=== PATIENT | female | born 1970 | race Caucasian/White ===

== ENCOUNTER 2016-11-06 12:49 | Inpatient (IN) | payer BC, OTHER ==
[2016-11-06 13:16] VITALS: RESP 16
[2016-11-06] MEDS ORDERED: SODIUM CHLORIDE 0.9% 1,000 ML IV STA (13:45)
[2016-11-06] MEDS ORDERED: KETOROLAC 30 MG/ML 1 ML VIAL IVP STA (13:45)
--- NOTE | 2016-11-06 14:06 | ED ---
General Adult HPI - General Chief complaint: Urogenital Stated complaint: Right Side Tenderness/pain in back Time Seen by Provider: 11/06/16 13:39 Source: patient, RN notes reviewed Mode of arrival: ambulatory Limitations: no limitations - History of Present Illness Initial comments: Patient for 6-year-old female who presents emergency room today with chief complaint of right-sided flank pain. Patient does admit to some symptoms of dysuria last week. States a slight "burning" sensation at the end of voiding. States still having similar symptoms. Patient states that she began having increased right-sided flank pain that started early this morning. States pain seems to be getting worse. Describes it as "sharp". Patient does admit that it radiates around to the front. Patient denies any other complaints or symptoms. Denies any history of kidney stones or similar symptoms in the past. Patient states she was concerned as she only has one kidney on the right side due to chronic infections. Patient denies any recent fever, chills, shortness of breath, chest pain, nausea or vomiting, numbness or tingling, dysuria or hematuria, constipation or diarrhea, headaches or visual changes, or any other complaints. - Related Data Home Medications Medication Instructions Recorded Confirmed No Known Home Medications [No 11/06/16 11/06/16 Known Home Medications] Allergies Allergy/AdvReac Type Severity Reaction Status Date / Time UNKNOWN ANTIBIOTIC Allergy Unknown Uncoded 11/06/16 14:26 Review of Systems ROS Statement: Those systems with pertinent positive or pertinent negative responses have been documented in the HPI. ROS Other: All systems not noted in ROS Statement are negative. Past Medical History Additional Past Medical History / Comment(s): has only 1 kidney History of Any Multi-Drug Resistant Organisms: C-DIFF Date of last positivie culture/infection: 2012 MDRO Source:: stool Past Surgical History: Cholecystectomy Additional Past Surgical History / Comment(s): nephrectomy endometrial ablation Past Psychological History: Depression Smoking Status: Current every day smoker Past Alcohol Use History: Occasional Past Drug Use History: None Reported General Exam - General Exam Comments Initial Comments: General: The patient is awake and alert, in no distress, and does not appear acutely ill. Eye: Pupils are equal, round and reactive to light, extra-ocular movements are intact. No nystagmus. There is normal conjunctiva bilaterally. No signs of icterus. Ears, nose, mouth and throat: There are moist mucous membranes and no oral lesions. Neck: The neck is supple, there is no tenderness or JVD. Cardiovascular: There is a regular rate and rhythm. No murmur, rub or gallop is appreciated. Respiratory: Lungs are clear to auscultation, respirations are non-labored, breath sounds are equal. No wheezes, stridor, rales, or rhonchi. Gastrointestinal: Soft, non-distended, non-tender abdomen without masses or organomegaly noted. There is no rebound or guarding present. No CVA tenderness. Bowel sounds are unremarkable. Musculoskeletal: Normal ROM, no tenderness. Strength 5/5. Sensation intact. Pulses equal bilaterally 2+. Neurological: A&O x 3. CN II-XII intact, There are no obvious motor or sensory deficits. Coordination appears grossly intact. Speech is normal. Skin: Skin is warm and dry and no rashes or lesions are noted. Psychiatric: Cooperative, appropriate mood & affect, normal judgment. Limitations: no limitations Course Vital Signs 11/06/16 11/06/16 13:12 15:49 Temperature 97.7 F 98.0 F Pulse Rate 85 63 Respiratory 16 16 Rate Blood Pressure 121/76 130/77 O2 Sat by Pulse 99 90 L Oximetry Medical Decision Making - Medical Decision Making Patient's CAT scan reviewed and does show 3.3 mm stone on the right side. Nephrectomy on the left. Patient's urinalysis does show evidence for infection. Patient started on antibiotics of Rocephin here in the emergency room. Patient will be admitted for further iv antibiotics and evaluation. Consult to urology. - Lab Data Result diagrams: 11/06/16 14:25 11/06/16 14:25 Lab Results 11/06/16 11/06/16 11/06/16 Range/Units 14:25 14:25 14:25 WBC 11.9 H (3.8-10.6) k/uL RBC 4.37 (3.80-5.40) m/uL Hgb 14.2 (11.4-16.0) gm/dL Hct 44.4 (34.0-46.0) % MCV 101.6 H (80.0-100.0) fL MCH 32.5 (25.0-35.0) pg MCHC 31.9 (31.0-37.0) g/dL RDW 12.6 (11.5-15.5) % Plt Count 211 (150-450) k/uL Neutrophils % 72 % Lymphocytes % 21 % Monocytes % 4 % Eosinophils % 2 % Basophils % 0 % Neutrophils # 8.6 H (1.3-7.7) k/uL Lymphocytes # 2.4 (1.0-4.8) k/uL Monocytes # 0.4 (0-1.0) k/uL Eosinophils # 0.2 (0-0.7) k/uL Basophils # 0.0 (0-0.2) k/uL Sodium 139 (137-145) mmol/L Potassium 4.5 (3.5-5.1) mmol/L Chloride 105 (98-107) mmol/L Carbon Dioxide 27 (22-30) mmol/L Anion Gap 7 mmol/L BUN 8 (7-17) mg/dL Creatinine 0.79 (0.52-1.04) mg/dL Est GFR (MDRD) Af Amer >60 (>60 ml/min/1.73 sqM) Est GFR (MDRD) Non-Af >60 (>60 ml/min/1.73 sqM) Glucose 88 (74-99) mg/dL Calcium 9.6 (8.4-10.2) mg/dL Total Bilirubin 0.8 (0.2-1.3) mg/dL AST 14 (14-36) U/L ALT 21 (9-52) U/L Alkaline Phosphatase 47 (38-126) U/L Total Protein 7.2 (6.3-8.2) g/dL Albumin 4.2 (3.5-5.0) g/dL Amylase 64 (30-110) U/L Lipase 63 (23-300) U/L Urine Color Urine Appearance (Clear) Urine pH (5.0-8.0) Ur Specific Meacham (1.001-1.035) Urine Protein (Negative) Urine Glucose (UA) (Negative) Urine Ketones (Negative) Urine Blood (Negative) Urine Nitrate (Negative) Urine Bilirubin (Negative) Urine Urobilinogen (<2.0) mg/dL Ur Leukocyte Esterase (Negative) Urine RBC (0-5) /hpf Urine WBC (0-5) /hpf Urine WBC Clumps (None) /hpf Ur Squamous Epith Cells (0-4) /hpf Urine Bacteria (None) /hpf Urine Mucus (None) /hpf Urine Yeast (Budding) (None) /hpf Urine HCG, Qual Not Detected (Not Detectd) 11/06/16 Range/Units 14:25 WBC (3.8-10.6) k/uL RBC (3.80-5.40) m/uL Hgb (11.4-16.0) gm/dL Hct (34.0-46.0) % MCV (80.0-100.0) fL MCH (25.0-35.0) pg MCHC (31.0-37.0) g/dL RDW (11.5-15.5) % Plt Count (150-450) k/uL Neutrophils % % Lymphocytes % % Monocytes % % Eosinophils % % Basophils % % Neutrophils # (1.3-7.7) k/uL Lymphocytes # (1.0-4.8) k/uL Monocytes # (0-1.0) k/uL Eosinophils # (0-0.7) k/uL Basophils # (0-0.2) k/uL Sodium (137-145) mmol/L Potassium (3.5-5.1) mmol/L Chloride (98-107) mmol/L Carbon Dioxide (22-30) mmol/L Anion Gap mmol/L BUN (7-17) mg/dL Creatinine (0.52-1.04) mg/dL Est GFR (MDRD) Af Amer (>60 ml/min/1.73 sqM) Est GFR (MDRD) Non-Af (>60 ml/min/1.73 sqM) Glucose (74-99) mg/dL Calcium (8.4-10.2) mg/dL Total Bilirubin (0.2-1.3) mg/dL AST (14-36) U/L ALT (9-52) U/L Alkaline Phosphatase (38-126) U/L Total Protein (6.3-8.2) g/dL Albumin (3.5-5.0) g/dL Amylase (30-110) U/L Lipase (23-300) U/L Urine Color Yellow Urine Appearance Cloudy H (Clear) Urine pH 6.5 (5.0-8.0) Ur Specific Meacham 1.008 (1.001-1.035) Urine Protein 2+ H (Negative) Urine Glucose (UA) Negative (Negative) Urine Ketones Negative (Negative) Urine Blood Moderate H (Negative) Urine Nitrate Positive H (Negative) Urine Bilirubin Negative (Negative) Urine Urobilinogen <2.0 (<2.0) mg/dL Ur Leukocyte Esterase Large H (Negative) Urine RBC 80 H (0-5) /hpf Urine WBC 101 H (0-5) /hpf Urine WBC Clumps Few H (None) /hpf Ur Squamous Epith Cells 2 (0-4) /hpf Urine Bacteria Moderate H (None) /hpf Urine Mucus Rare H (None) /hpf Urine Yeast (Budding) Few H (None) /hpf Urine HCG, Qual (Not Detectd) Disposition Clinical Impression: Kidney stone, UTI (urinary tract infection) Disposition: ADMITTED IP TO THIS HOSP Condition: Good Time of Disposition: 16:48
[2016-11-06 14:49] LABS: ALT 21 U/L (9-52); AST 14 U/L (14-36); Alkaline Phosphatase 47 U/L (38-126); Amylase 64 U/L (30-110); Anion Gap 7 mmol/L; Blood Urea Nitrogen 8 mg/dL (7-17); Calcium 9.6 mg/dL (8.4-10.2); Carbon Dioxide 27 mmol/L (22-30); Chloride 105 mmol/L (98-107); Glucose 88 mg/dL (74-99); Non-African American GFR(MDRD) >60 (>60 ml/min/1.73 sqM); Potassium 4.5 mmol/L (3.5-5.1); Sodium 139 mmol/L (137-145); Total Bilirubin 0.8 mg/dL (0.2-1.3); Total Protein 7.2 g/dL (6.3-8.2)
[2016-11-06 14:51] LABS: Appearance,Urine Cloudy (Clear); Bacteria,Urine Moderate /hpf; Bilirubin,Urine Negative (Negative); Glucose,Urine (UA) Negative (Negative); Ketones,Urine Negative (Negative); Leukocyte Esterase,Urine Large (Negative); Mucus,Urine Rare /hpf; Nitrite,Urine Positive (Negative); PH, Urine 6.5 (5.0-8.0); Particle Count 5968; Protein,Urine 2+ (Negative); RBC,Urine 80 /hpf (0-5); Specific Gravity,Urine 1.008 (1.001-1.035); Squamous Epithelial Cell,Urine 2 /hpf (0-4); UA Billing (MACRO vs. MICRO) MICRO; Urobilinogen,Urine <2.0 mg/dL (<2.0); WBC,Urine 101 /hpf (0-5)
[2016-11-06 14:57] LABS: Basophils % (A) 0 %; CH 32.4; Eosinophils # (A) 0.2 k/uL (0-0.7); Eosinophils % (A) 2 %; HCT 44.4 % (34.0-46.0); HDW 1.93; HGB 14.2 gm/dL (11.4-16.0); Luc # (Auto) 0.26; Luc % (Auto) 2; Lymphocytes # (A) 2.4 k/uL (1.0-4.8); Lymphocytes % (A) 21 %; MCH 32.5 pg (25.0-35.0); MCHC 31.9 g/dL (31.0-37.0); MCV 101.6 fL (80.0-100.0); Monocytes # (A) 0.4 k/uL (0-1.0); Monocytes % (A) 4 %; Neutrophils # (A) 8.6 k/uL (1.3-7.7); Neutrophils % (A) 72 %; RBC 4.37 m/uL (3.80-5.40); RDW 12.6 % (11.5-15.5); WBC 11.9 k/uL (3.8-10.6); WBC (Perox) 11.61
--- NOTE | 2016-11-06 15:03 | XR ---
EXAMINATION TYPE: XR KUB DATE OF EXAM ORDERED: 11/06/2016 2:47 PM HISTORY: Lower abdominal pain and painful urination.. COMPARISON: None. FINDINGS: There are extensive surgical clips throughout the left side of the abdomen. The abdominal gas pattern is normal. There is no evidence of obstruction or free air. There are phleb oliths within the pelvis. No other unusual calcifications are seen. IMPRESSION: 1. NO ACUTE INTRA-ABDOMINAL ABNORMALITY. 2. EXTENSIVE POSTSURGICAL CHANGE.
--- NOTE | 2016-11-06 15:33 | CT ---
EXAMINATION TYPE: CT abdomen pelvis wo con DATE OF EXAM: 11/06/2016 3:25 PM COMPARISON: NONE HISTORY: Difficulty urinating and right sided pain. CT DLP: 243.40 mGycm Automated exposure control for dose reduction was used. FINDINGS: Visualized portions of the lungs are clear. There is no pleural or pericardial fluid. The h eart is not enlarged. Within the abdomen, the gallbladder has been removed. The liver and spleen are normal. Both adrenal glands are normal. The left kidney is not visualized. There are surgical clips in the expected left renal fossa. There i s hypertrophic change involving the right kidney. There is fullness of the right renal pelvis. There is a 3.3 mm calculus within the midportion of the right ureter. Very limited views of the pancreas are unremarkable. There is no significant retroperitoneal adenopathy. The bladder is unremarkable. The uterus is retroverted. The ovaries are not visualized with certainty. Both large and small bowel loops appear normal. The appendix is normal. There is no free fluid and no free air identified. No osseous lesion is seen. IMPRESSION: 1. EVIDENCE OF PREVIOUS LEFT NEPHRECTOMY. 2. HYPERTROPHY OF THE RIGHT KIDNEY WITH MILD HYDRONEPHROSIS AND A 3.3 MM CALCULUS IN THE MIDPORTION O F THE RIGHT URETER.
[2016-11-06] MEDS ORDERED: SODIUM CHLORIDE 0.9% 1,000 ML IV ONE (16:48)
[2016-11-06] MEDS ORDERED: LORazepam 2 MG/ML SYRINGE IV PRN (16:48)
[2016-11-06] MEDS ORDERED: ONDANSETRON 4 MG/2 ML VIAL IVP PRN (16:48)
[2016-11-06] MEDS ORDERED: NALOXONE 0.4 MG/ML 1 ML VIAL IV PRN (16:48)
[2016-11-06] MEDS ORDERED: KETOROLAC 30 MG/ML 1 ML VIAL IVP PRN (16:48)
[2016-11-06] MEDS ORDERED: ACETAMINOPHEN TAB 325 MG TAB PO PRN (16:48)
[2016-11-06] MEDS ORDERED: HYDROmorphone 1 MG/ML 1 ML SYRINGE IVP PRN (16:55)
--- NOTE | 2016-11-06 17:48 | P.GSCN ---
History of Present Illness Consult date: 11/06/16 Reason for Consult: UTI, hydronephrosis Requesting physician: James Aguirre History of present illness: The patient is a 46-year-old white female who underwent a left nephrectomy for hydronephrosis in the . She denies any prior history of urolithiasis. She has been treated for UTIs in the past, but none since her nephrectomy. On October 31, she experienced mild terminal dysuria. She was urinating into a public restroom, and thought she may have passed something. Her pain resolved, but it recurred yesterday. She reports mild dysuria, associated with right flank and right lower quadrant abdominal pain. Review of Systems - Constitutional Denies chills, Denies fever - Gastrointestinal Reports nausea, Denies vomiting - Genitourinary Genitourinary: Reports dysuria, Denies hematuria Past Medical History Additional Past Medical History / Comment(s): has only 1 kidney History of Any Multi-Drug Resistant Organisms: C-DIFF Year Discovered:: 2012 MDRO Source:: stool Past Surgical History: Cholecystectomy Additional Past Surgical History / Comment(s): nephrectomy endometrial ablation Past Psychological History: Depression Smoking Status: Current every day smoker Past Alcohol Use History: Occasional Past Drug Use History: None Reported Medications and Allergies Home Medications Medication Instructions Recorded Confirmed Type No Known Home Medications [No 11/06/16 11/06/16 History Known Home Medications] Allergies Allergy/AdvReac Type Severity Reaction Status Date / Time UNKNOWN ANTIBIOTIC Allergy Unknown Uncoded 11/06/16 14:26 Surgical - Exam Vital Signs Temp Pulse Resp BP Pulse Ox 97.7 F 85 16 121/76 99 11/06/16 13:12 11/06/16 13:12 11/06/16 13:12 11/06/16 13:12 11/06/16 13:12 - General well developed, well nourished, no distress - Abdomen Abdomen: soft, tender (RLQ tenderness), no guarding, no rigid, no rebound, no distended - Neurologic no disoriented, no combative - Psychiatric oriented to time, oriented to person, oriented to place, speech is normal, memory intact Results - Labs 11/06/16 14:25 11/06/16 14:25 Abnormal Lab Results - Last 24 Hours (Table) 02/16/17 02/16/17 Range/Units 14:25 14:25 WBC 11.9 H (3.8-10.6) k/uL MCV 101.6 H (80.0-100.0) fL Neutrophils # 8.6 H (1.3-7.7) k/uL Urine Appearance Cloudy H (Clear) Urine Protein 2+ H (Negative) Urine Blood Moderate H (Negative) Urine Nitrate Positive H (Negative) Ur Leukocyte Esterase Large H (Negative) Urine RBC 80 H (0-5) /hpf Urine WBC 101 H (0-5) /hpf Urine WBC Clumps Few H (None) /hpf Urine Bacteria Moderate H (None) /hpf Urine Mucus Rare H (None) /hpf Urine Yeast (Budding) Few H (None) /hpf Diabetes panel 11/06/16 Range/Units 14:25 Sodium 139 (137-145) mmol/L Potassium 4.5 (3.5-5.1) mmol/L Chloride 105 (98-107) mmol/L Carbon Dioxide 27 (22-30) mmol/L BUN 8 (7-17) mg/dL Creatinine 0.79 (0.52-1.04) mg/dL Glucose 88 (74-99) mg/dL Calcium 9.6 (8.4-10.2) mg/dL AST 14 (14-36) U/L ALT 21 (9-52) U/L Alkaline Phosphatase 47 (38-126) U/L Total Protein 7.2 (6.3-8.2) g/dL Albumin 4.2 (3.5-5.0) g/dL Calcium panel 11/06/16 Range/Units 14:25 Calcium 9.6 (8.4-10.2) mg/dL Albumin 4.2 (3.5-5.0) g/dL Pituitary panel 11/06/16 Range/Units 14:25 Sodium 139 (137-145) mmol/L Potassium 4.5 (3.5-5.1) mmol/L Chloride 105 (98-107) mmol/L Carbon Dioxide 27 (22-30) mmol/L BUN 8 (7-17) mg/dL Creatinine 0.79 (0.52-1.04) mg/dL Glucose 88 (74-99) mg/dL Calcium 9.6 (8.4-10.2) mg/dL Adrenal panel 02/16/17 Range/Units 14:25 Sodium 139 (137-145) mmol/L Potassium 4.5 (3.5-5.1) mmol/L Chloride 105 (98-107) mmol/L Carbon Dioxide 27 (22-30) mmol/L BUN 8 (7-17) mg/dL Creatinine 0.79 (0.52-1.04) mg/dL Glucose 88 (74-99) mg/dL Calcium 9.6 (8.4-10.2) mg/dL Total Bilirubin 0.8 (0.2-1.3) mg/dL AST 14 (14-36) U/L ALT 21 (9-52) U/L Alkaline Phosphatase 47 (38-126) U/L Total Protein 7.2 (6.3-8.2) g/dL Albumin 4.2 (3.5-5.0) g/dL Assessment and Plan (1) Hydronephrosis Status: Acute Plan: The patient is a 46-year-old white female with a solitary right kidney. She is admitted with right flank pain. Urinalysis is consistent with a UTI. Computed tomography scan shows mild hydronephrosis. The report suggests that this is due to a 3 mm right distal ureteral calculus, though to my review I see no definite evidence of urolithiasis. She has multiple pelvic calcifications consistent with phleboliths. She will be treated with IV antibiotics, pending the urine culture result. The urine will be strained. Depending on her progress, she may require cystoscopy, right retrograde pyelogram, and right ureteral stent insertion. Time with Patient: Greater than 30
[2016-11-07 07:48] VITALS: BP 115/71; PULSE 74; TEMP 97.9
--- NOTE | 2016-11-07 07:48 | P.PN ---
Progress Note - Text Patient is afebrile and has been since she was admitted yesterday afternoon. She is normotensive. Says her right flank pain is greatly reduced from yesterday and is tolerable. She has no nausea or vomiting. Patient requested to be released later today as she says she's feeling much better. I personally reviewed the patient's computed tomography scan performed yesterday and agree with Dr. Aguilar that the calcification noted in the right retroperitoneum appears to be overlying the vena cava and is unlikely to be a ureteral calculus. Impression: Urinary tract infection associated with right flank pain-it's unclear whether this is a true pyelonephritis as the patient has not had a fever although she does have an elevated white blood count. Recommendation: If the patient remains comfortable she could probably be released later today on oral antibiotics such as Levaquin. The patient has not been on an antibiotic recently and should be sensitive to quinolones. A urine culture should be available tomorrow and I can contact the patient to ensure that she is on the correct antibiotic.
[2016-11-07 08:52] LABS: Basophils # (A) 0.1 k/uL (0-0.2); Basophils % (A) 1 %; CH 32.8; CHCM 31.6; Eosinophils # (A) 0.3 k/uL (0-0.7); Eosinophils % (A) 3 %; HCT 35.2 % (34.0-46.0); HDW 1.98; Luc % (Auto) 2; Lymphocytes # (A) 2.2 k/uL (1.0-4.8); Lymphocytes % (A) 25 %; MCHC 31.6 g/dL (31.0-37.0); MCV 104.5 fL (80.0-100.0); Macrocytosis Slight; Mean Platelet Volume 10.1; Monocytes # (A) 0.5 k/uL (0-1.0); Monocytes % (A) 5 %; Neutrophils # (A) 5.6 k/uL (1.3-7.7); Neutrophils % (A) 64 %; RBC 3.37 m/uL (3.80-5.40); RDW 12.7 % (11.5-15.5); WBC 8.7 k/uL (3.8-10.6); WBC (Perox) 7.84
[2016-11-07 08:53] LABS: HGB 11.1 gm/dL (11.4-16.0)
[2016-11-07 08:57] LABS: ALT 32 U/L (9-52); AST 22 U/L (14-36); Alkaline Phosphatase 40 U/L (38-126); Anion Gap 6 mmol/L; Blood Urea Nitrogen 11 mg/dL (7-17); Calcium 8.6 mg/dL (8.4-10.2); Carbon Dioxide 22 mmol/L (22-30); Chloride 111 mmol/L (98-107); Glucose 93 mg/dL (74-99); Non-African American GFR(MDRD) >60 (>60 ml/min/1.73 sqM); Potassium 4.6 mmol/L (3.5-5.1); Sodium 139 mmol/L (137-145); Total Bilirubin 0.4 mg/dL (0.2-1.3); Total Protein 5.3 g/dL (6.3-8.2)
--- NOTE | 2016-11-07 18:07 | HP ---
DATE OF ADMISSION: 11/06/2016 CHIEF COMPLAINT: Right joint groin pain. HISTORY OF PRESENT ILLNESS: This 46-year-old woman with a past history of pneumonia, history of nephrectomy in 1994, history of glaucoma, history of Clostridium difficile, history of cholecystectomy, history of uterine ablation, history of nephrectomy, history of depression being followed by Dr. Aguirre in the outpatient setting was complaining of severe right upper quadrant abdominal pain going from the flank to loin to groin and pain is sharp in character. The patient was admitted for further evaluation and treatment. Nephrolithiasis suspected. Abdominal pelvis CAT scan was done, which showed evidence of previous left nephrectomy and hypertrophy of the right kidney with mild hydronephrosis and 3.3 mm calculus was noted in the CAT scan but; however, Dr. Aguilar saw the patient from urology. Dr. Aguilar thought no definite evidence of urolithiasis, multiple pelvic calcifications consistent with phleboliths was noted. IV antibiotics were given. The patient improving significantly. No chest pain or palpitation. No fever. PAST MEDICAL HISTORY: 1. History of pneumonia. 3. Cholecystectomy. 4. Uterine ablation. 5. Depression. MEDICATIONS: None. ALLERGIES: None. FAMILY HISTORY: History of myocardial infarction in the family. SOCIAL HISTORY: History of nicotine dependence and occasional alcohol intake. REVIEW OF SYSTEMS: ENT: No diminished vision. No diminished hearing. CARDIOVASCULAR: No angina or palpitations. RESPIRATORY: As mentioned earlier. Hematology/oncology: No history of anemia. GASTROINTESTINAL: No nausea or vomiting. GENITOURINARY: No dysuria. ALLERGY/IMMUNOLOGY: No asthma or hayfever. MUSCULOSKELETAL: As mentioned earlier. DERMATOLOGY: Negative. ENDOCRINE: No history of diabetes or hypothyroidism. CONSTITUTIONAL: As mentioned earlier. RHEUMATOLOGY: Negative. PSYCHIATRY: As mentioned earlier. PHYSICAL EXAMINATION: The patient is alert and oriented times three. Pulse 77, blood pressure 97/54, respiratory rate 16, temperature 97.4, pulse ox 100% on room air. HEENT: Conjunctivae normal . NECK: No jugular venous distention. CARDIOVASCULAR: S1, S2 muffled. RESPIRATORY: Breath sounds diminished on the bases. Minimal crackles. ABDOMEN: Soft. Mild diffuse tenderness in the right upper quadrant and right lower ( ). No mass palpable. Legs: No edema. No swelling. CENTRAL NERVOUS SYSTEM: Higher functions as mentioned earlier. Moves all 4 limbs. No focal motor or sensory deficits. LYMPHATICS: No lymph nodes palpable in the neck, axillae or groin. SKIN: No ulcer, rash or bleeding. LABS: WBC 11.9, MCV 101.6. UA noted. ASSESSMENT: 1. Acute pyelonephritis, possibly with severe acute respiratory syndrome. 2. Increased WBC. 3. Increased MCV. 4. Anemia, anemia of chronic disease. 5. Multiple fluid bolus. 6. History of left nephrectomy in 1994. 7. History of glaucoma. 8. History of shingles. 9. History of migraines. 11. History of cholecystectomy. 12. History of uterine ablation. 13. History of depression. 14. Remote history of nicotine dependence. 15. FULL CODE. RECOMMENDATIONS AND DISCUSSION: In this 46 -year-old woman who presented with multiple complex medical issues, we will monitor the patient closely. Continue with the current medications, continue broad-spectrum IV antibiotics and obtain cultures. Urology consultation. Guarded prognosis because of multiple complex medical issues. Further recommendations to follow. A copy of dictation being forwarded to Dr. Aguirre who is the primary care physician. BRENDA
--- NOTE | 2016-11-08 08:55 | DS ---
DATE OF ADMISSION: 11/06/2016 DATE OF DISCHARGE: 11/07/2016 FINAL DIAGNOSES: 1. Right pyelonephritis with possible systemic inflammatory response syndrome. 2. Right upper quadrant abdominal pain. 3. Possible phlebolith. 4. History of hydronephrosis. 5. History of left nephrectomy. 6. History of glaucoma. 7. History of migraines. 8. History of Clostridium difficile. 9. History of uterine ablation. 10. History of depression. 11. History of nicotine dependence. 12. Increased WBC improved. DISCHARGE DISPOSITION: The patient will be discharged in a stable condition with guarded prognosis. Urology cleared the patient. HISTORY OF PRESENT ILLNESS: A 46-year-old woman with a past medical history of multiple medical problems admitted with features of right loin to groin pain. The possibility of pyelonephritis considered, treated empirically with antibiotics. Improved significantly. The patient was seen by Dr. Aguilar who thought the patient did not have any urolithiasis, but instead phleboliths. Please refer to Dr. Aguilar full dictation for further information. On exam, vitals are stable. CARDIOVASCULAR: S1 and S2, muffled. ABDOMEN: Soft, nontender. NERVOUS SYSTEM: No focal deficits. DISCHARGE ADVICE: 1. Diet is cardiac. 2. Activity limited until followup. 3. Follow up with Dr. Aguirre in 1 to 2 days. 4. Follow up with Urology as recommended. Medications are: 1. Ramah 5 mg q.6 p.r.n. 2. Levaquin 500 mg daily for 7 days.
== END 2016-11-07 11:25 | disposition home or self-care (01) | DRG 690 ==
LOC: EC 12:49 → 5MS5E 16:24
PROVIDERS: ADMIT Hospitalist; ATTEND Hospitalist
DX: N10 Acute pyelonephritis (principal); F32.9 Major depressive disorder, single episode, unspecified; D63.8 Anemia in other chronic diseases classified elsewhere; F17.200 Nicotine dependence, unspecified, uncomplicated; H40.9 Unspecified glaucoma; G43.909 Migraine, unspecified, not intractable, without status migrainosus; I87.8 Other specified disorders of veins; N28.81 Hypertrophy of kidney; Z90.5 Acquired absence of kidney; Z82.49 Family history of ischemic heart disease and other diseases of the circulatory system
CPT/HCPCS: 36415; 74000; 74176; 80053; 81001; 81025; 82150; 83690; 85025; 87077; 87086; 87186; 96361; 96365; 96375; 99285

== ENCOUNTER → 2018-02-04 | Outpatient (CLI) | payer BC ==
--- NOTE | 2018-02-04 13:54 | XR ---
EXAMINATION TYPE: XR chest 2V DATE OF EXAM: 02/04/2018 COMPARISON: 12/31/2015 TECHNIQUE: PA and lateral views submitted. HISTORY: Shortness of breath and cough FINDINGS: The lungs are clear and there is no pneumothorax, pleural effusion, or focal pneumonia. Surgical cl ips in the abdomen noted. No overt failure. There is mild hyperinflation. Correlate clinically. This can be associated with asthma or chronic obstructive pulmonary disease. IMPRESSION: 1. No acute process.
== END | disposition home or self-care (01) ==
LOC: RADXRMAIN 13:36
PROVIDERS: ATTEND Internal Medicine
DX: J06.9 Acute upper respiratory infection, unspecified (principal)
CPT/HCPCS: 71046

== ENCOUNTER → 2018-02-19 | Outpatient (CLI) | payer BC ==
--- NOTE | 2018-02-22 11:52 | MM ---
Reason for exam: screening (asymptomatic). Last mammogram was performed 2 years and 2 months ago. Physical Findings: A clinical breast exam by your physician is recommended on an annual basis and results should be correlated with mammographic findings. MG Screening Mammo w CAD Bilateral CC and MLO view(s) were taken. Prior study comparison: December 31, 2015, bilateral MG 3d screening mammo w/cad. September 11, 2010, mammogram, performed at [facility]. The breast tissue is extremely dense which could obscure a lesion on mammography. There is no discrete abnormality. No significant changes when compared with prior studies. ASSESSMENT: Negative, BI-RAD 1 RECOMMENDATION: Routine screening mammogram of both breasts in 1 year.
== END | disposition home or self-care (01) ==
LOC: RADMAMWWP 13:23
PROVIDERS: ATTEND Internal Medicine
DX: Z12.31 Encounter for screening mammogram for malignant neoplasm of breast (principal)
CPT/HCPCS: 77067

== ENCOUNTER → 2019-10-12 | Outpatient (CLI) | payer BC ==
--- NOTE | 2019-10-12 13:01 | XR ---
2 view abdomen HISTORY: Right lower quadrant pain, left lower quadrant pain and nausea 2 views the abdomen correlated to prior KUB 11/06/2016, CT 11/06/2016 Multiple surgical clips are present within the right upper quadrant, left hemiabdomen. Probable phleb oliths present pelvis. There is no evident bowel obstruction or pneumoperitoneum. Bone mineralization is maintained. Lung bases are clear. There are air-fluid levels present without bowel distention. IMPRESSION: Correlate for ileus, enteritis. Follow-up as indicated. Patient is post left nephrectomy.
== END | disposition home or self-care (01) ==
LOC: RADXRMAIN 11:31
PROVIDERS: ATTEND Internal Medicine
DX: N94.6 Dysmenorrhea, unspecified (principal); R10.31 Right lower quadrant pain; R10.32 Left lower quadrant pain; Z90.5 Acquired absence of kidney
CPT/HCPCS: 74019

== ENCOUNTER → 2022-02-12 | Outpatient (CLI) | payer BC ==
--- NOTE | 2022-02-12 13:34 | XR ---
Bilateral feet HISTORY: Bilateral heel pain 2 views of both feet submitted Bone mineralization, joint spaces and alignment are maintained, mild degenerative change present at t he metatarsophalangeal joints of the first digits. No sizable plantar calcaneal spur noted bilaterall y. No significant soft tissue swelling. 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
== END | disposition home or self-care (01) ==
LOC: RADXRMAIN 11:58
PROVIDERS: ATTEND Internal Medicine
DX: M19.071 Primary osteoarthritis, right ankle and foot (principal); M19.072 Primary osteoarthritis, left ankle and foot

== ENCOUNTER 2023-04-01 19:09 | Emergency (ER) | payer OTHER, BC ==
[2023-04-01 19:25] VITALS: RESP 18
--- NOTE | 2023-04-01 21:25 | ED ---
General Adult HPI - General Chief complaint: Extremity Injury, Upper Stated complaint: R elbow injury [facility] Time Seen by Provider: 04/01/23 21:16 Source: patient, RN notes reviewed Mode of arrival: ambulatory Limitations: no limitations - History of Present Illness Initial comments: 52-year-old female presents to emergency department chief complaint of right elbow pain. Patient states that she was at work when a piece of the machine hit her on the elbow. She is unsure of the weight. She states that she is able to move her elbow but it is painful. Denies pain in any other location. No significant past medical history. - Related Data Previous Rx's Medication Instructions Recorded HYDROcodone/APAP 5-325MG [[place] 1 tab PO Q6HR PRN #20 tab 11/07/16 5-325] levoFLOXacin [Levaquin] 500 mg PO DAILY #7 tab 11/07/16 Allergies Allergy/AdvReac Type Severity Reaction Status Date / Time UNKNOWN ANTIBIOTIC Allergy Nausea & Uncoded 04/01/23 19:25 Vomiting Review of Systems ROS Statement: Those systems with pertinent positive or pertinent negative responses have been documented in the HPI. ROS Other: All systems not noted in ROS Statement are negative. Past Medical History Past Medical History: Pneumonia Additional Past Medical History / Comment(s): had hydronephrosis- had lt nephrectomy 1994, early onset glaucoma, shingles as teenager, bronchitis, sinus /seasonal allergies, migraines, c-diff few times -last in 2012 History of Any Multi-Drug Resistant Organisms: None Reported Date of last positivie culture/infection: 2012 MDRO Source:: stool Past Surgical History: Cholecystectomy, Uterine Ablation Additional Past Surgical History / Comment(s): lt nephrectomy , dental implant lt lower, colonoscopy Past Anesthesia/Blood Transfusion Reactions: No Reported Reaction Past Psychological History: Depression Smoking Status: Current every day smoker Past Alcohol Use History: Daily Past Drug Use History: Marijuana - Past Family History Father Family Medical History: Myocardial Infarction ([place]) Mother Family Medical History: Diabetes Mellitus, Hypertension General Exam Limitations: no limitations General appearance: alert, in no apparent distress Head exam: Present: atraumatic, normocephalic, normal inspection Eye exam: Present: normal appearance ENT exam: Present: normal exam, mucous membranes moist Neck exam: Present: normal inspection. Absent: tenderness, meningismus, lymphadenopathy Respiratory exam: Present: normal lung sounds bilaterally. Absent: respiratory distress, wheezes, rales, rhonchi, stridor Cardiovascular Exam: Present: regular rate, normal rhythm, normal heart sounds. Absent: systolic murmur, diastolic murmur, rubs, gallop, clicks Extremities exam: Present: normal inspection, full ROM, tenderness (Right elbo w), normal capillary refill. Absent: pedal edema, joint swelling, calf tenderness Back exam: Present: normal inspection Neurological exam: Present: alert, oriented X3 Psychiatric exam: Present: normal affect, normal mood Skin exam: Present: warm, dry, intact, normal color. Absent: rash Course Vital Signs 04/01/23 04/01/23 19:19 22:57 Temperature 98.5 F 98.3 F Pulse Rate 76 78 Respiratory 18 18 Rate Blood Pressure 133/86 132/81 O2 Sat by Pulse 99 98 Oximetry Medical Decision Making - Medical Decision Making Was pt. sent in by a medical professional or institution (, PA, HOUSING OFFICER, urgent care, hospital, or usp...) When possible be specific @ -No Did you speak to anyone other than the patient for history (EMS, parent, family, police, friend...)? What history was obtained from this source @ -No Did you review nursing and triage notes (agree or disagree)? Why? @ -I reviewed and agree with nursing and triage notes Were old charts reviewed (outside hosp., previous admission, EMS record, old EKG, old radiological studies, urgent care reports/EKG's, usp records)? Report findings @ -No old charts were reviewed Differential Diagnosis (chest pain, altered mental status, abdominal pain women, abdominal pain men, vaginal bleeding, weakness, fever, dyspnea, syncope, headache, dizziness, GI bleed, back pain, seizure, CVA, palpatations, mental health, musculoskeletal)? @ -Differential Musculoskeletal Muscular strain, contusion, ligament sprain, fracture, arthritis, septic arthritis, bursitis, cellulitis, muscle spasm, nerve compression, DVT, arterial occlusion, herpes zoster, electrolyte abnormality, tumor.... This is not meant to be in all inclusive list EKG interpreted by me (3pts min.). @ -None X-rays interpreted by me (1pt min.). @ -X-ray of the right elbow show no evidence for acute fracture CT interpreted by me (1pt min.). @ -None done U/S interpreted by me (1pt. min.). @ -None done What testing was considered but not performed or refused? (CT, X-rays, U/S, labs)? Why? @ -None What meds were considered but not given or refused? Why? @ -None Did you discuss the management of the patient with other professionals (professionals i.e. Dr., PA, HOUSING OFFICER, lab, RT, psych nurse, social media analyst, thermostatic controls supervisor, teacher, chief executive officer, case coordinator)? Give summary @ -No Was smoking cessation discussed for >3mins.? @ -No Was critical care preformed (if so, how long)? @ -No Were there social determinants of health that impacted care today? How? (Homelessness, low income, unemployed, alcoholism, drug addiction, transportation, low edu. Level, literacy, decrease access to med. care, assisted, rehab)? @ -No Was there de-escalation of care discussed even if they declined (Discuss DNR or withdrawal of care, Hospice)? DNR status @ -No What co-morbidities impacted this encounter? (DM, HTN, Smoking, COPD, CAD, Cancer, CVA, ARF, Chemo, Hep., AIDS, mental health diagnosis, sleep apnea, morbid obesity)? @ -None Was patient admitted / discharged? Hospital course, mention meds given and route, prescriptions, significant lab abnormalities, going to OR and other pertinent info. @ -Discharge. Patient presented to emergency department with chief complaint of right elbow pain following an injury that occurred at work. She obtained which showed no evidence for acute fracture. Patient was advised on x-ray findings and to rest, ice, elevate and take Tylenol and Motrin as needed for pain. Patient stable at time of discharge. Case discussed my attending, Dr. Macias Undiagnosed new problem with uncertain prognosis? @ -No Drug Therapy requiring intensive monitoring for toxicity (Heparin, Nitro, Insulin, Cardizem)? @ -No Were any procedures done? @ -No Diagnosis/symptom? @ -elbow contusion Acute, or Chronic, or Acute on Chronic? @ -acute Uncomplicated (without systemic symptoms) or Complicated (systemic symptoms)? @ -uncomplicated Side effects of treatment? @ -No Exacerbation, Progression, or Severe Exacerbation? @ -No Poses a threat to life or bodily function? How? (Chest pain, [place], [place], pneumonia, PE, COPD, DKA, ARF, appy, cholecystitis, CVA, Diverticulitis, Homicidal, Suicidal, threat to staff... and all critical care pts) @ -No Disposition Clinical Impression: Elbow contusion Disposition: HOME SELF-CARE Condition: Stable Instructions (If sedation given, give patient instructions): Elbow Sprain (ED) Additional Instructions: Please return to the emergency department for new or worsening symptoms. Is patient prescribed a controlled substance at d/c from ED?: No Referrals: None,Stated [Primary Care Provider] - 1-2 days Time of Disposition: 22:39
--- NOTE | 2023-04-01 21:44 | XR ---
EXAMINATION TYPE: XR elbow complete RT DATE OF EXAM: 04/01/2023 9:40 PM INDICATION: Patient age:Female; 52 years old; Reason for study: pain, work injury; COMPARISON: None TECHNIQUE: The right elbow was examined in AP, lateral, and oblique projections. FINDINGS: No evidence of any acute osseous pathology, joint dislocation, or soft tissue swelling is n oted. No evidence of joint effusion is present. IMPRESSION: No evidence of acute fracture. Consider further evaluation with MRI for soft tissue evaluation.
[2023-04-01 22:59] VITALS: BP 132/81; PULSE 78; TEMP 98.3
== END 2023-04-01 22:57 | disposition home or self-care (01) ==
LOC: EC 19:09
DX: S50.01XA Contusion of right elbow, initial encounter (principal); Z86.59 Personal history of other mental and behavioral disorders; F17.200 Nicotine dependence, unspecified, uncomplicated; F12.90 Cannabis use, unspecified, uncomplicated; Z88.1 Allergy status to other antibiotic agents; W22.8XXA Striking against or struck by other objects, initial encounter; Y99.0 Civilian activity done for income or pay
CPT/HCPCS: 99283

== ENCOUNTER → 2024-03-02 | Outpatient (CLI) | payer OTHER ==
--- NOTE | 2024-03-02 12:37 | XR ---
EXAM TYPE: LUMBAR SPINE X RAY SERIES COMPARISON: NONE HISTORY: Pain TECHNIQUE: 4 views are submitted. FINDINGS: Alignment is anatomic. The pedicles are intact. The transverse processes are intact. There is mult ilevel hypertrophic spurring. Facet arthropathy L4-5 and L5-S1 with mild degenerative disc disease. N umerous surgical clips are seen. IMPRESSION: 1. Multilevel mild degenerative disc disease and facet arthropathy.
== END | disposition home or self-care (01) ==
LOC: RADXRMAIN 12:11
PROVIDERS: ATTEND Emergency Medicine
DX: M47.816 Spondylosis without myelopathy or radiculopathy, lumbar region (principal); M51.36 Other intervertebral disc degeneration, lumbar region; S39.012A Strain of muscle, fascia and tendon of lower back, initial encounter
CPT/HCPCS: 72100

== ENCOUNTER 2024-03-07 12:01 | Emergency (ER) | payer OTHER, BC ==
[2024-03-07 12:29] VITALS: RESP 18
[2024-03-07] MEDS: KETOROLAC 15 MG/ML 1 ML VIAL IM STA (12:57)
--- NOTE | 2024-03-07 13:40 | XR ---
EXAMINATION TYPE: XR lumbosacral spine min 4V DATE OF EXAM: 03/07/2024 1:27 PM CLINICAL INDICATION:Female, 53 years old with history of Injury twisting; [facility] COMPARISON: No 03/02/2024 ne TECHNIQUE: XR lumbosacral spine min 4V - Frontal, lateral , bilateral oblique and coned in L5-S1 late ral views of the spine. FINDINGS: No evidence of any acute osseous pathology. No evidence of loss of vertebral body height i s seen. There is normal alignment of the lumbar vertebral bodies. Mild scattered disc space narrowing . Multilevel marginal osteophyte formation throughout the visualized spine. There is facet joint arth ropathy throughout the spine. Scattered at least mild neural foraminal stenosis. Surgical clips proje ct over the abdomen. IMPRESSION: 1. No acute fracture. 2. Mild multilevel disc degeneration.
[2024-03-07] MEDS: HYDROmorphone 0.5 MG/0.5 ML SYRINGE IM STA (13:51)
--- NOTE | 2024-03-07 13:54 | ED ---
General Adult HPI - General Chief complaint: Back Pain/Injury Stated complaint: Back Pain Time Seen by Provider: 03/07/24 12:30 Source: patient, RN notes reviewed, old records reviewed Mode of arrival: ambulatory - History of Present Illness Initial comments: Is a 53-year-old female who presents to the emergency department complains of left lower back pain. Patient denies any radiation of the leg. Patient was sent [place] [facility] [place] she denies any perineum numbness though it is documented in the [facility] form she states it was feeling tingly all over from the medication she was given. Patient states a week ago at work she hurt it but it was no blunt trauma it was just lifting and twisting around. Denies any other symptoms at this time - Related Data Previous Rx's Medication Instructions Recorded HYDROcodone/APAP 5-325MG [[place] 1 tab PO Q6HR PRN #20 tab 11/07/16 5-325] levoFLOXacin [Levaquin] 500 mg PO DAILY #7 tab 11/07/16 Allergies Allergy/AdvReac Type Severity Reaction Status Date / Time ketorolac [From Toradol] AdvReac Severe Unknown Verified 03/07/24 13:22 UNKNOWN ANTIBIOTIC Allergy Nausea & Uncoded 03/07/24 12:29 Vomiting Review of Systems ROS Statement: Those systems with pertinent positive or pertinent negative responses have been documented in the HPI. ROS Other: All systems not noted in ROS Statement are negative. Past Medical History Past Medical History: Pneumonia Additional Past Medical History / Comment(s): had hydronephrosis- had lt nephrectomy 1994, early onset glaucoma, shingles as teenager, bronchitis, sinus /seasonal allergies, migraines, c-diff few times -last in 2012 History of Any Multi-Drug Resistant Organisms: None Reported, C-DIFF Date of last positivie culture/infection: 2012 MDRO Source:: stool Past Surgical History: Cholecystectomy, Uterine Ablation Additional Past Surgical History / Comment(s): lt nephrectomy , dental implant lt lower, colonoscopy Past Anesthesia/Blood Transfusion Reactions: No Reported Reaction Past Psychological History: Depression Smoking Status: Current every day smoker Past Alcohol Use History: Daily Past Drug Use History: Marijuana - Past Family History Father Family Medical History: Myocardial Infarction ([place]) Mother Family Medical History: Diabetes Mellitus, Hypertension General Exam - General Exam Comments Initial Comments: GENERAL: Patient is well-developed and well-nourished. Patient is nontoxic and well- hydrated and is in mild distress. ENT: Neck is soft and supple. No significant lymphadenopathy is noted. Oropharynx is clear. Moist mucous membranes. Neck has full range of motion without eliciting any pain. EYES: The sclera were anicteric and conjunctiva were pink and moist. Extraocular movements were intact and pupils were equal round and reactive to light. Eyelids were unremarkable. PULMONARY: Unlabored respirations. Good breath sounds bilaterally. No audible rales rhonchi or wheezing was noted. CARDIOVASCULAR: There is a regular rate and rhythm without any murmurs gallops or rubs. ABDOMEN: Soft and nontender with normal bowel sounds. SKIN: Skin is clear with no lesions or rashes and otherwise unremarkable. NEUROLOGIC: Patient is alert and oriented x3. Cranial nerves II through XII are grossly intact. Motor and sensory are also intact. Normal speech, volume and content. Symmetrical smile. Straight leg test is negative bilaterally. Perineum exam was normal MUSCULOSKELETAL: Normal extremities with adequate strength and full range of motion. LYMPHATICS: No significant lymphadenopathy is noted PSYCHIATRIC: Normal psychiatric evaluation. Course Vital Signs 03/07/24 12:25 Temperature 97.8 F Pulse Rate 85 Respiratory 18 Rate Blood Pressure 130/84 O2 Sat by Pulse 100 Oximetry Medical Decision Making - Medical Decision Making Was pt. sent in by a medical professional or institution ([facility], PO[facility]ER, urgent care, hospital, or residential...) When possible be specific @ -Media Matchmaker sent the patient to the emergency department. Did you speak to anyone other than the patient for history (EMS, parent, family, police, friend...)? What history was obtained from this source @ -No Did you review nursing and triage notes (agree or disagree)? Why? @ -I reviewed and agree with nursing and triage notes Were old charts reviewed (outside hosp., previous admission, EMS record, old EKG, old radiological studies, urgent care reports/EKG's, residential records)? Report findings @ -No old charts were reviewed Differential Diagnosis (chest pain, altered mental status, abdominal pain women, abdominal pain men, vaginal bleeding, weakness, fever, dyspnea, syncope, headache, dizziness, GI bleed, back pain, seizure, CVA, palpatations, mental health, musculoskeletal)? @ -Differential Musculoskeletal Muscular strain, contusion, ligament sprain, fracture, arthritis, septic arthritis, bursitis, cellulitis, muscle spasm, nerve compression, DVT, arterial occlusion, herpes zoster, electrolyte abnormality, tumor.... This is not meant to be in all inclusive list EKG interpreted by me (3pts min.). @ -As above X-rays interpreted by me (1pt min.). @ -Shows no acute abnormality CT interpreted by me (1pt min.). @ -None done U/S interpreted by me (1pt. min.). @ -None done What testing was considered but not performed or refused? (CT, X-rays, U/S, labs)? Why? @ -None What meds were considered but not given or refused? Why? @ -None Did you discuss the management of the patient with other professionals (professionals i.e. , PA, POISER, lab, RT, psych nurse, social services analyst, talent development manager, teacher, strategic debriefing officer, piano case maker)? Give summary @ -No Was smoking cessation discussed for >3mins.? @ -No Was critical care preformed (if so, how long)? @ -No Were there social determinants of health that impacted care today? How? (Homelessness, low income, unemployed, alcoholism, drug addiction, transportation, low edu. Level, literacy, decrease access to med. care, usp, rehab)? @ -No Was there de-escalation of care discussed even if they declined (Discuss DNR or withdrawal of care, Hospice)? DNR status @ -No What co-morbidities impacted this encounter? (DM, HTN, Smoking, COPD, CAD, Cancer, CVA, ARF, Chemo, Hep., AIDS, mental health diagnosis, sleep apnea, morbi d obesity)? @ -None Was patient admitted / discharged? Hospital course, mention meds given and route, prescriptions, significant lab abnormalities, going to OR and other pertinent info. @ -Patient's x-ray showed no acute abnormality. Patient refused Toradol and muscle relaxant. Patient will follow-up with [facility] Undiagnosed new problem with uncertain prognosis? @ -No Drug Therapy requiring intensive monitoring for toxicity (Heparin, Nitro, Insulin, Cardizem)? @ -No Were any procedures done? @ -No Diagnosis/symptom? @ -Lumbar strain Acute, or Chronic, or Acute on Chronic? @ -Acute Uncomplicated (without systemic symptoms) or Complicated (systemic symptoms)? @ -Uncomplicated Side effects of treatment? @ -No Exacerbation, Progression, or Severe Exacerbation? @ -No Poses a threat to life or bodily function? How? (Chest pain, [place], [place], pneumonia, PE, COPD, DKA, ARF, appy, cholecystitis, CVA, Diverticulitis, Homicidal, Suicidal, threat to staff... and all critical care pts) @ -No Disposition Clinical Impression: Strain of lumbar region Disposition: HOME SELF-CARE Instructions (If sedation given, give patient instructions): Acute Low Back Pain (ED) Is patient prescribed a controlled substance at d/c from ED?: No Referrals: None,Stated [Primary Care Provider] - 1-2 days Time of Disposition: 13:54
[2024-03-07] MEDS: ACET/COD 300 MG/30 MG STARTER PACK 6 TAB BTL PO STA (14:13)
[2024-03-07 14:27] VITALS: BP 130/68; PULSE 80; TEMP 98.1
== END 2024-03-07 14:28 | disposition home or self-care (01) ==
LOC: EC 12:01
DX: S39.012A Strain of muscle, fascia and tendon of lower back, initial encounter (principal); F17.200 Nicotine dependence, unspecified, uncomplicated; F12.90 Cannabis use, unspecified, uncomplicated; Z88.6 Allergy status to analgesic agent; Z88.8 Allergy status to other drugs, medicaments and biological substances; X58.XXXA Exposure to other specified factors, initial encounter
CPT/HCPCS: 72110; 99283